=== PATIENT | male | born 1950 | race Caucasian/White ===

== ENCOUNTER 2025-11-21 12:39 | Emergency (ER) | payer MEDICARE, OTHER, SELFPAY ==
[2025-11-21 12:44] VITALS: BP 113/92; PULSE 74; TEMP 36.7; O2SAT 100; BMI 30.7
--- NOTE | 2025-11-21 12:55 | CT_ITS ---
The [address] [address] Patient Name: TD WALLS MRN: [id number] date: 1950 Sex: M Assigned Patient Location: ED.MAIN Current Patient Location: ED.MAIN Accession/Order Number: [id number] Exam Date: 11/21/2025 13:33 Report Date: 11/21/2025 14:23 At the request of: RICHARD RAYMOND DO Procedure: CT abdomen pelvis w con CT ABDOMEN AND PELVIS WITH INTRAVENOUS CONTRAST: CLINICAL HISTORY: LUQ pain, r/o splenic/renal injury COMPARISON: None TECHNIQUE: Spiral images were obtained through the abdomen and pelvis following the administration of intravenous contrast. This CT exam was performed using one or more following dose reduction techniques: Automated exposure control, adjustment of the mA and/or kV according to patient size, or use of iterative reconstruction technique. FINDINGS: Lung Bases: [No acute process.] Organs:Liver gallbladder portal vein spleen pancreas and adrenal glands appear unremarkable. Cystic changes involving the kidneys. Aorta appears normal in caliber.[ GI: Stomach is a moderate size hiatal hernia. Small bowel appears nondilated. Colonic diverticulosis.[ Pelvis:[Prostatomegaly. Urinary bladder is grossly unremarkable.] Peritoneum/Retroperitoneum:No free air, free fluid or lymphadenopathy.[ Abd wall/Bones:Abdominal wall demonstrates no acute findings. Osseous structures demonstrate degenerative change.[ CT/CT abdomen pelvis w con IMPRESSION: No acute findings. Impression dictated by: Jorgito Bowling Jr.OTurner 11/21/2025 2:23 PM Dictation Location: [facility] [employer] Electronically authenticated by: [id number] Y Date: 11/21/2025 14:23
--- NOTE | 2025-11-21 12:55 | CT_ITS ---
The [address] [address] Patient Name: TD WALLS MRN: [id number] date: 1950 Sex: M Assigned Patient Location: ED.MAIN Current Patient Location: ED.MAIN Accession/Order Number: [id number] Exam Date: 11/21/2025 13:33 Report Date: 11/21/2025 14:07 At the request of: RICHARD RAYMOND DO Procedure: CT chest wo con CT CHEST WITHOUT IV CONTRAST: CLINICAL HISTORY: posterior left lower rib pain COMPARISON: None TECHNIQUE: Spiral images were obtained through the chest without IV contrast. This CT exam was performed using one or more following dose reduction techniques: Automated exposure control, adjustment of the mA and/or kV according to patient size, or use of iterative reconstruction technique. FINDINGS: Mediastinum:Thoracic aorta appears normal in caliber. Pulmonary trunk appears nondilated. No pericardial effusion. No lymphadenopathy. The esophagus is grossly unremarkable. Moderate-sized hiatal hernia. Lungs:Diffuse bronchial wall thickening. Bibasilar atelectasis/scarring. No consolidation pneumothorax or pleural effusion. Abd:Please see CT abdomen and pelvis report Soft tissues/Bones: No acute findings. Osseous structures demonstrate degenerative change. No displaced rib fracture is noted. CT/CT chest wo con IMPRESSION: No acute process. Impression dictated by: Noah Ahumada Jr., D.O. 11/21/2025 2:07 PM Dictation Location: [place] [address] Electronically authenticated by: [id number] Y Date: 11/21/2025 14:07
--- NOTE | 2025-11-21 12:56 | PC.NURSE ---
left side back pain, no redness, bruising and skin intact at site of complaint.
--- NOTE | 2025-11-21 13:04 | ED.GENADUL1 ---
HPI HPI - General Adult General Chief complaint: Back Pain/Injury Stated complaint: FALL; BACK PAIN Time Seen by Provider: 11/21/25 12:44 Source: patient Mode of arrival: walk-in Limitations: no limitations History of Present Illness HPI narrative: Patient is a 75-year-old male presenting to the emergency department for evaluation of left-sided rib pain. The patient slipped and fell on his driveway approximately 5 hours prior to ED arrival. He states he has been taking Tylenol for the pain, though his symptoms of gotten worse. He states the pain is located in his left lower back/rib. He states it is painful to take a deep breath. He denies nausea or vomiting or abdominal pain. No chest pain or shortness of breath. He has a history of GERD and high cholesterol but is otherwise healthy with no chronic medical conditions. He is on a baby aspirin but not on anticoagulation or DAPT. He did not hit his head or lose consciousness. Related Data Home Medications ?Medication ?Instructions ?Recorded ?Confirmed aspirin 81 mg capsule 81 mg PO DAILY 11/21/25 11/21/25 brimonidine 0.2 %-timolol 0.5 % 1 drp ophthalmic (eye) BID 11/21/25 11/21/25 eye drops famotidine 20 mg tablet 20 mg PO BID 11/21/25 11/21/25 lovastatin 20 mg tablet 20 mg PO DAILY 11/21/25 11/21/25 Previous Rx's ?Medication ?Instructions ?Recorded oxycodone-acetaminophen 5 mg-325 1 tab PO Q8H PRN pain 4 days #10 11/21/25 mg tablet tabs Allergies Allergy/AdvReac Type Severity Reaction Status Date / Time No Known Drug Allergies Allergy Verified 11/21/25 12:49 Opioid HPI Opioid Management Most Recent Opioid Data: Last Pain Scale 6 Today, 13:08 Last MAR Pain Assessment Today, 13:08 Review of Systems ROS Status of ROS 10 or more systems reviewed and unremarkable except as noted in history and below PFSH PFSH Social History Little interest or pleasure in doing things: not at all Feeling down, depressed, or hopeless: not at all Exam Narrative Exam Narrative: CONSTITUTIONAL: Appears uncomfortable but nontoxic, mentating appropriately, answering questions and following commands appropriately SKIN: Was warm and dry. No external signs of injury such as lacerations or abrasions or ecchymosis. EYES: Sclerae white. EARS, NOSE, THROAT: Moist oral mucosa. RESPIRATORY: Clear to auscultation bilaterally, no wheezes, crackles, or stridor, no use of accessory muscles CARDIOVASCULAR: Normal rate and regular rhythm. There is no S3, S4, murmur, rub. GASTROINTESTINAL: There is mild tenderness to palpation in the left upper quadrant of the patient's abdomen. No rebound tenderness or guarding. Nondistended. MUSCULOSKELETAL: There is reproducible point tenderness over the posterior left lower rib. No crepitus. No step-offs or deformities. NEUROLOGIC: Patient is awake and alert. Ambulates with steady gait. Equal strength in all extremities. Facies were symmetrical. Constitutional Vital Signs, click to edit/add: Last Vital Signs Temp 98.1 F 11/21/25 12:44 Pulse 63 11/21/25 14:09 Resp 18 11/21/25 14:09 BP 128/66 11/21/25 14:09 Pulse Ox 100 11/21/25 14:09 O2 Del Method Room Air 11/21/25 12:44 Course Vital Signs Vital signs: Vital Signs Temperature 98.1 F 11/21/25 12:44 Pulse Rate 74 11/21/25 12:44 Respiratory Rate 18 11/21/25 12:44 Blood Pressure 113/92 H 11/21/25 12:44 Pulse Oximetry 100 11/21/25 12:44 Oxygen Delivery Method Room Air 11/21/25 12:44 Temperature 98.1 F 11/21/25 12:44 Pulse Rate 63 11/21/25 14:09 Respiratory Rate 18 11/21/25 14:09 Blood Pressure 128/66 11/21/25 14:09 Pulse Oximetry 100 11/21/25 14:09 Oxygen Delivery Method Room Air 11/21/25 12:44 Medical Decision Making MDM Narrative Medical decision making narrative: Patient is a 75-year-old male presenting to the emergency department for evaluation of left lower back pain after mechanical fall from standing height 5 hours prior to arrival. His vital signs on arrival are within normal limits. He is afebrile and hemodynamically stable. Examination as noted above. Differential diagnosis includes posterior rib fracture, pneumothorax, splenic injury, renal injury, or other traumatic injuries. IV was established and laboratory studies were obtained. CT chest/abdomen/pelvis was ordered. He was given IV Dilaudid for pain. CT chest/abdomen/pelvis independently reviewed and interpreted by myself and radiology demonstrated no acute traumatic injuries. Laboratory studies were significant for microcytic, hypochromic anemia which is likely chronic in nature. Patient is unaware of his baseline hemoglobin. He denies history of iron deficiency anemia. He denies history of melena, hematochezia, or any other sources of bleeding. States he had a normal colonoscopy less than 10 years ago. Otherwise, no leukocytosis or other electrolyte/metabolic derangement. No evidence of acute renal injury. No transaminitis or hyperbilirubinemia. On reevaluation, patient states his pain has significant improved, is now 1/10 in severity. I do believe the patient is stable for discharge. Patient's presentation is most likely consistent with musculoskeletal/back contusion. They were instructed to follow up with his PCP for further care and workup of his microcytic anemia. Return precautions were given including any new or worsening symptoms. They were given a prescription for oxycodone 5 mg x 10 tablets. Patient understands and agrees to the plan. FINAL IMPRESSION: #Acute back contusion s/p mechanical fall #Age-indeterminate microcytic, hypochromic anemia DISPOSITION: Discharged home CONDITION: Good Lab Data Lab results reviewed: Yes I reviewed the patient's lab results Labs: Lab Results 11/21/25 Range/Units 13:04 WBC 8.0 (4.0-11.0) 10^3/uL RBC 3.60 L (4.70-6.10) 10^6/uL Hgb 7.1 L (14.0-18.0) g/dL Hct 25.4 L (42.0-54.0) % MCV 70.6 L (80.0-94.0) fL MCH 19.7 L (25.9-34.0) pg MCHC 28.0 L (29.9-35.2) g/dL RDW 17.4 H (11.0-15.0) % Plt Count 379 (150-450) 10^3/uL MPV 9.8 (9.5-13.5) fL Neut % (Auto) 70.5 (43.0-75.0) % Lymph % (Auto) 17.4 L (20.5-60.0) % Bullitt % (Auto) 9.4 (1.7-12.0) % Eos % (Auto) 1.5 (0.9-7.0) % Baso % (Auto) 0.8 (0.2-2.0) % Neut # (Auto) 5.6 (1.4-6.5) 10^3/uL Lymph # (Auto) 1.4 (1.2-3.8) 10^3/uL Bullitt # (Auto) 0.8 (0.3-0.8) 10^3/uL Eos # (Auto) 0.1 (0.0-0.7) 10^3/uL Baso # (Auto) 0.1 (0.0-0.1) 10^3/uL Abs Immat Gran (auto) 0.03 (0.00-0.03) 10^3/uL Imm/Tot Granulo (auto) 0.4 (0.0-0.5) % Sodium 137 (136-145) mmol/L Potassium 4.0 (3.5-5.1) mmol/L Chloride 106 (98-107) mmol/L Carbon Dioxide 28.4 (21.0-32.0) mmol/L Anion Gap 6.6 BUN 20.0 H (7.0-18.0) mg/dL Creatinine 0.85 (0.70-1.30) mg/dL Est GFR ( Amer) >60 (>=60 mL/min/1.73m^2) Est GFR (Non-Af Amer) >60 (>=60 mL/min/1.73m^2) BUN/Creatinine Ratio 23.5 Glucose 101 (74-106) mg/dL Calcium 8.8 (8.5-10.1) mg/dL Total Bilirubin 0.5 (0.2-1.0) mg/dL AST 17 (15-37) U/L ALT 20 (16-63) U/L Alkaline Phosphatase 93 (46-116) U/L Total Protein 7.0 (6.4-8.2) g/dL Albumin 3.8 (3.4-5.0) g/dL Globulin 3.2 g/dL Albumin/Globulin Ratio 1.[address] scan - abdomen: Attestation: I personally reviewed and interpreted this imaging study as follows: Radiologist's impression: ITS Impressions Abdomen/Pelvis CT 12/24/25 12:55 IMPRESSION: No acute findings. Impression dictated by: Noah Ahumada Jr., D.O. 11/21/2025 2:23 PM Dictation Location: [employer] Electronically authenticated by: [id number] Y Date: 11/21/2025 14:[address] 11/21/25 12:55 IMPRESSION: No acute process. Impression dictated by: Noah Ahumada Jr., D.O. 11/21/2025 2:07 PM Dictation Location: [employer] Electronically authenticated by: [id number] Y Date: 11/21/2025 14:07 Discharge Plan Discharge Chief Complaint: Back Pain/Injury Clinical Impression: Contusion of mid back Patient Disposition: Home, Self-Care Time of Disposition Decision: 14:39 Condition: Good Mode of Transportation: Private Vehicle Prescriptions / Home Meds: New oxycodone-acetaminophen 5-325 mg tablet 1 tab PO Q8H PRN (Reason: pain) 4 Days Qty: 10 0RF No Action famotidine 20 mg tablet 20 mg PO BID lovastatin 20 mg tablet 20 mg PO DAILY brimonidine-timolol 0.2-0.5 % drops 1 drp OPHTHALMIC (EYE) BID aspirin 81 mg capsule 81 mg PO DAILY Print Language: East Timorese Instructions: Rib Contusion (ED) Additional Instructions: Follow up with your family DR and return to ER for any problems or conserns. Referrals: RAKEL TORIBIO [Primary Care Provider, Family Practice] - 1 week Discharge Date/Time: 11/21/25 14:50
[2025-11-21] MEDS: HYDROMORPHONE HCL 0.5 MG/0.5 ML SYRINGE IV (13:08)
[2025-11-21 13:18] LABS: Hematocrit 25.4 % (42.0-54.0); Hemoglobin 7.1 g/dL (14.0-18.0); Immature Granulocytes Abs Auto 0.03 10^3/uL (0.00-0.03); Immature Granulocytes Pct Auto 0.4 % (0.0-0.5); Lymphocytes Absolute Auto 1.4 10^3/uL (1.2-3.8); Mean Corpuscular HGB Conc 28.0 g/dL (29.9-35.2); Mean Corpuscular Hemoglobin 19.7 pg (25.9-34.0); Mean Corpuscular Volume 70.6 fL (80.0-94.0); Platelet Count 379 10^3/uL (150-450); Red Blood Count 3.60 10^6/uL (4.70-6.10); White Blood Count 8.0 10^3/uL (4.0-11.0)
--- OUTSIDE RECORDS SUMMARY | 2025-11-21 13:27 | XMS_ITS | Clinical Summary ---
Author Organization [facility] Address [facility] [place] [id number] Care Team Providers Care Animal Attendant Name Role Phone Unavailable Primary Care Provider Unavailabl e Allergies No known active allergies Medications MedicationSigDispense QuantityRefillsLast FilledStart DateEnd DateStatus aspirin, enteric coated (ASPIRIN, ENTERIC COATED) 81 mg EC tablet Take 81 mg by mouth.Active vitamin D3-vitamin K2 5,500-200 unit-mcg tab Take 1 tablet by mouth.Active cyanocobalamin (VITAMIN B-12) 100 mcg tab Take 100 mcg by mouth.Active lovastatin (MEVACOR) 20 mg tablet Take 20 mg by mouth.Active Brimonidine-Timolol (COMBIGAN) 0.2-0.5 % Combigan 0.2 %-0.5 % eye drops INSTILL 1 DROP IN BOTH EYES TWICE DAILYActive Omeprazole Magnesium (PRILOSEC OTC) 20 mg tablet Prilosec OTC 20 mg tablet,delayed release Take by oral route.Active Active Problems No known active problems Family History Medical HistoryRelationCommentsCancerBrotherCancerFatherGlaucomaMaternal GrandfatherRelationStatusCommentsBrotherFatherMaternal Grandfather Social History Tobacco UseTypesPacks/DayYears UsedDateSmoking Tobacco: NeverSmokeless Tobacco: NeverAlcohol UseStandard Drinks/WeekCommentsNot Currently0 (1 standard drink = 0.6 oz pure alcohol)Area Deprivation IndexAnswerDate RecordedNational Score (1- 100), lower number is lower riskNot on 12/05/2020tate Score (1-10), lower number is lower riskNot on file12/05/2020ata from: https://www.neighborhoodatlas.medicine.[facility].edu/. Last address used for calculationNot on 12/05/2020ex and Gender InformationValueDate RecordedSex Assigned at BirthNot on fileLegal FbhKfhw38/12/2011 8:18 AM ESTGender Identity Not on fileSexual OrientationNot on file Plan of Treatment Health MaintenanceDue DateLast DoneCommentsAnxiety Fkbnqymid91/21/1967Depression Jvgnibhgf27/21/1967Hepatitis C Skmktrvin82/21/1967Diabetes Ihzonyrnt38/21/1994 Shingrix Vaccine (1 of 2)1999DTaP,Tdap,Td Vaccine (2 - Td or Tdap) RSV Vaccine (1 - 1-dose 75+ series)2024dvance Directive Xpnnexegqb75/01/2025ovid-19 Vaccine ( - 2024- season)2025 Influenza Vaccine (#1)2025Pneumococcal Vaccine: 50+Xyvlygnbu34/25/2016, 09/13/20158656HruldvvxncxYdvmzfrztnyd45/04/2019Colorectal Cancer Screening DiscontinuedCT ColonographyDiscontinuedCologuard (FIT-DNA)DiscontinuedFecal Occult BloodDiscontinuedSigmoidoscopyDiscontinued Insurance
--- OUTSIDE RECORDS SUMMARY | 2025-11-21 13:27 | XMS_ITS | Clinical Summary ---
Author Organization [employer] tem Address [id number] [place] [address] Care Team Providers Care Information Technology Consultant Name Role Phone Keven Pereira Primary Care Provider [phone] Allergies No known active allergies Medications MedicationSigDispense QuantityRefillsLast FilledStart DateEnd DateStatus aspirin 81 mg Take 1 tablet (81 mg total) by mouth in the morning.Active vitamin D3-vitamin K2 5,500-200 unit-mcg tablet Take 1 tablet by mouth in the morning.Active cyanocobalamin (VITAMIN B-12) 100 MCG tablet Take 1 tablet (100 mcg total) by mouth in the morning.Active brimonidine-timoloL (COMBIGAN) 0.2-0.5 % ophthalmic solution Administer 1 drop to both eyes every 12 (twelve) hours. 5 mL 11/25/2022ctive CALCIUM CARB-VITAMIN D3-VIT K2 ORAL Take 1 1e11 Vector [employer] by mouth. 1 a dayActive zinc gluconate 50 mg tablet Take 1 tablet (50 mg total) by mouth in the morning.5Active lovastatin (MEVACOR) 20 mg tablet Indications:Pure hypercholesterolemia, unspecifiedTAKE 1 TABLET BY MOUTH DAILY 90 tablet 5Active famotidine (PEPCID) 20 mg tablet Indications:Gastro-esophageal reflux disease without esophagitisTAKE 1 TABLET BY MOUTH TWICE DAILY (IN THE MORNING and BEFORE bedtime) 180 tablet 5Active Active Problems ProblemNoted DateDiagnosed DateOrthostatic nctuoqvqnqy98/06/2024Bradycardia 3842Wmtqhyr94/19/2023Class 1 obesity due to excess calories with serious comorbidity and body mass index (BMI) of 30.0 to 30.9 in adult11/25/2022Muscle tension hfobbqak69/19/2022rain lviadpipot69/19/2022Gastroesophageal reflux ikmczbk7510/17/20221848Enakrupd22/19/2022olyp of transverse colon11/01/2019 Diverticulosis large intestine w/o perforation or abscess w/o ewzxqzei87/04/2019 Closed fracture of sagcph7106/02/2019Vitamin D kbzgkdhujz69/05/2019 Ueuuytdwqoywxqecjuwa29/17/2016Degeneration of lumbar intervertebral disc 07/24/2016Degeneration of thoracic intervertebral disc07/24/2016 Resolved Problems ProblemNoted DateDiagnosed DateResolved DatePersonal history of colonic polyps Overview (08/29/2024): Replacing Diagnosis that were inactivated after 08/29 regulatory import Immunizations ImmunizationAdministration DatesNext DuePneumococcal Conjugate 13-Valent 09/13/2015Pneumococcal Arnkdwnhylcvuj39/25/7908Ulof80/09/2009 Family History Medical HistoryRelationNameCommentsProstate cancerBrother 1Prostate cancer Brother 2Prostate cancerFatherHeart failureMaternal GrandmotherLymphomaMother RelationNameStatusCommentsBrother 1Brother 2FatherDeceasedMaternal Grandmother MotherAlive Social History Tobacco UseTypesPacks/DayYears UsedDateSmoking Tobacco: NeverSmokeless Tobacco: NeverAlcohol UseStandard Drinks/WeekCommentsNot Currently0 (1 standard drink = 0.6 oz pure alcohol)[facility] UtilitiesAnswerDate RecordedIn the past 12 months has the [employer], [employer], or water [employer] threatened to shut off services in your home?No03/14/2024Social Connection and Isolation PanelAnswerDate RecordedIn a typical week, how many times do you talk on the phone with family, friends, or neighbors?More than three times a week11/25/2022How often do you get together with friends or relatives?More than three times a week11/25/2022How often do you attend mu-ism or bahai services?More than 4 times per year2Do you belong to any clubs or organizations such as mu-ism groups, unions, fraternal or athletic groups, or school groups?Yes11/25/2022How often do you attend meetings of the clubs or organizations you belong to?More than 4 times per year11/25/2022 Are you , , , , never , or living with a partner?Tgkffjr7211/25/2022UDIT-CAnswerDate RecordedQ1: How often do you have a drink containing alcohol?Never11/25/2022Q2: How many drinks containing alcohol do you have on a typical day when you are drinking?Patient does not drink 11/25/2022Q3: How often do you have six or more drinks on one occasion?Never 11/25/2022verall Financial Resource Strain (CARDIA)AnswerDate RecordedHow hard is it for you to pay for the very basics like food, housing, medical care, and heating?Not hard at all11/25/2022HQ-2AnswerDate RecordedTotal Ppnvq407 [facility] [place] of Occupational Health - Occupational Stress Questionnaire AnswerDate RecordedDo you feel stress - tense, restless, nervous, or anxious, or unable to sleep at night because yourmind is troubled all the time - these days? Only a rzcfoq7911/25/2022Exercise Vital SignAnswerDate RecordedOn average, how many days per week do you engage in moderate to strenuous exercise (like a brisk walk)?0 days04/10/2025On average, how many minutes do you engage in exercise at this level?0 min04/10/2025PRAPARE - TransportationAnswerDate RecordedIn the past 12 months, has lack of transportation kept you from medical appointments or from getting medications?No11/25/2022In the past 12 months, has lack of transportation kept you from meetings, work, or from getting things needed for daily living?No11/25/2022Housing InstabilityAnswerDate RecordedAre you worried or concerned that in the next two months you may not have stable housing that you own, rent or stay in as a part of a household?No03/14/2024hildcareAnswer Date RecordedDo problems getting exceptional children's teacher make it difficult for you to work or study?No11/25/2022EmploymentAnswerDate RecordedDo you need help finding a local career center and/or a training program?No11/25/2022Hunger ScreeningAnswerDate RecordedWithin the past 12 months we worried whether our food would run out before we got money to buy more.Never True06/15/2025Within the past 12 months the food we bought just didn't last and we didn't have money to get more.Never True06/15/2025Purpose - LifeAnswerDate RecordedI have a purpose and direction in my life.Strongly Agree11/25/2022ex and Gender InformationValueDate RecordedSex Assigned at BirthNot on fileLegal TpsMgyr8107/04/2015 11:51 AM EDTGender Identity Not on fileSexual OrientationNot on file Last Filed Vital Signs Vital SignReadingTime TakenCommentsBlood Lmvejeoz220/60006/15/2025 10:29 AM EDT Jbahx349306/15/2025 10:29 AM AXEEspnpvkrlgt96.7 ??C (98.1 ??F)06/15/2025 10:29 AM EDTRespiratory Jzqd297506/15/2025 10:29 AM EDTOxygen Lqrjrtfjwe63%06/15/2025 10:29 AM EDTInhaled Oxygen Concentration--Shwsuv53.6 kg (219 lb 9.6 oz)06/15/2025 10:29 AM GJMTwezyd636.8 cm (5' 10 )06/15/2025 10:29 AM EDTBody Mass Index31.51 06/15/2025 10:29 AM EDT Plan of Treatment DateTypeDepartmentCare Team (Latest Contact Info)Izhdoxkhaie04/14/2026 10:00 AM EDTOffice Visit [facility] [address] [place] [id number] Health MaintenanceDue DateLast DoneCommentsRSV ( or age 60+ yrs) (1 - 1- dose 75+ series)4DTaP,Tdap and Td Vaccines (2 - Td or Tdap)11/29/2025 02/04/2009Postponed from 02/04/2019 (Patient Refused)Zoster (Shingles) Vaccine (1 of 2)11/29/2025Postponed from 1999 (Patient Refused)Medicare Annual Wellness Visit/, 03/14/2024, 03/11/2023epression Screening Fall Risk Wxlklrwkr02Tobacco Screening Influenza VaccineDiscontinued Medical [place] [phone] Care Teams Team MemberRelationshipSpecialtyStart DateEnd Date Keven Pereira DO [address] [facility] [place] [address] [facility] Dsofdzwh37/3/19
--- OUTSIDE RECORDS SUMMARY | 2025-11-21 13:27 | XMS_ITS | Clinical Summary ---
Author Organization [facility] Healthcare Address [address] [place] [address] Care Team Providers Care Milk Bottling Machine Operator Name Role Phone Unallocated, Noms Provider Primary Care Provi ramon Allergies No known active allergies Medications MedicationSigDispense QuantityRefillsLast FilledStart DateEnd DateStatus cyanocobalamin (Vitamin B-12) 100 MCG tablet Take 100 mcg by mouth in the morning.Active omeprazole OTC (PriLOSEC OTC) 20 MG EC tablet Prilosec OTC 20 mg tablet,delayed release Take by oral route.Active Vitamin D-Vitamin K (Dosoquin) 5500-200 UNIT-MCG tablet Take 1 tablet by mouthActive brimonidine-timolol (Combigan) 0.2-0.5 % ophthalmic solution instill 1 DROP IN BOTH EYES TWICE DAILY DIRECTEDActive zinc gluconate 50 MG tablet Take 50 mg by mouth in the morning.5Active aspirin 81 MG EC tablet Take 81 mg by mouth in the morning.Active lovastatin (Mevacor) 20 MG tablet Take 20 mg by mouth in the morning.5Active Social History Tobacco UseTypesPacks/DayYears UsedDateSmoking Tobacco: NeverSmokeless Tobacco: Never Tobacco Cessation:Counseling Given: Not Answered Alcohol UseStandard Drinks/WeekCommentsNever0 (1 standard drink = 0.6 oz pure alcohol)Sex and Gender InformationValueDate RecordedSex Assigned at BirthNot on fileLegal CnxXync9602/10/2023 11:35 PM EDTGender IdentityNot on fileSexual OrientationNot on file Last Filed Vital Signs Vital SignReadingTime TakenCommentsBlood Pressure--Pulse--Temperature-- Respiratory Rate--Oxygen Saturation--Inhaled Oxygen Concentration--Ievkkh21.8 kg (220 lb)06/18/2025 2:13 PM TSIUtxwvs810.3 cm (5' 11 )06/18/2025 2:13 PM EDTBody Mass Index30.68006/18/2025 2:13 PM EDT Plan of Treatment Health MaintenanceDue DateLast DoneCommentsInfluenza Vaccine (#1)07/30/2025 Medicare Annual Wellness (AWV)6004/10/2025, 03/14/2024, 03/11/2023 Pneumococcal Vaccine: 65+ WrnzzWgcpcemfx66/25/2016, 09/13/2015 [place] [address] Care Teams Team MemberRelationshipSpecialtyStart DateEnd Date Unallocated, Noms Provider, [address] [place] [address] PCP - GeneralFamily Medicine06/18/25
[2025-11-21 13:28] LABS: Alanine Aminotransferase 20 U/L (16-63); Albumin Globulin Ratio 1.2; Albumin Level 3.8 g/dL (3.4-5.0); Alkaline Phosphatase 93 U/L (46-116); Anion Gap 6.6; Aspartate Amino Transferase 17 U/L (15-37); Blood Urea Nitrogen 20.0 mg/dL (7.0-18.0); Calcium 8.8 mg/dL (8.5-10.1); Carbon Dioxide 28.4 mmol/L (21.0-32.0); Chloride 106 mmol/L (98-107); Estimated GFR (African America >60 (>=60 mL/min/1.73m^2); Estimated GFR (Non-African Ame >60 (>=60 mL/min/1.73m^2); Globulin 3.2 g/dL; Glucose 101 mg/dL (74-106); Potassium 4.0 mmol/L (3.5-5.1); Sodium 137 mmol/L (136-145); Total Protein 7.0 g/dL (6.4-8.2)
[2025-11-21 14:09] VITALS: BP 128/66; PULSE 63; O2SAT 100
== END 2025-11-21 14:50 | disposition home or self-care (01) ==
PROVIDERS: Emergency Provider Student in an Organized Health Care Education/Training Program; PCP Family Medicine
DX: S30.0XXA Contusion of lower back and pelvis, initial encounter (principal); W01.0XXA Fall on same level from slipping, tripping and stumbling without subsequent striking against object, initial encounter; Y92.89 Other specified places as the place of occurrence of the external cause; K21.9 Gastro-esophageal reflux disease without esophagitis; E78.00 Pure hypercholesterolemia, unspecified; Z79.82 Long term (current) use of aspirin
CPT/HCPCS: 36415; 71250; 74177; 80053; 85025; 96374; 99285; J1171; Q9967